=== PATIENT | male | born 1965 | race Caucasian/White ===

== ENCOUNTER 2016-04-27 10:39 | Emergency (ER) | payer MEDICARE ==
[2016-04-27 11:09] LABS: HEMOGLOBIN 13.9 gm/dl (14.0-17.5); RED BLOOD COUNT 4.6 M/UL (4.20-5.50); WHITE BLOOD COUNT 6.9 K/UL (4.5-11.0)
[2016-04-27 11:33] LABS: BUN/CREATININE RATIO 20 (0-10)
== END 2016-04-27 14:43 | disposition home or self-care (01) ==
LOC: ER1 10:39
PROVIDERS: Emergency Medicine
DX: R07.89 Other chest pain (principal); R79.1 Abnormal coagulation profile; R53.83 Other fatigue; I48.91 Unspecified atrial fibrillation; E11.9 Type 2 diabetes mellitus without complications; Z88.8 Allergy status to other drugs, medicaments and biological substances; Z79.4 Long term (current) use of insulin; Z79.01 Long term (current) use of anticoagulants; Z79.899 Other long term (current) drug therapy
CPT/HCPCS: 36415; 71010; 80053; 82550; 82553; 83874; 84484; 85025; 85610; 85730; 93005; 99285

== ENCOUNTER 2016-06-19 11:31 | Emergency (ER) | payer MEDICARE | END 2016-06-19 12:37 | disposition home or self-care (01) | LOC: ER1 11:31 | DX: S80.862A Insect bite (nonvenomous), left lower leg, initial encounter (principal); E11.9 Type 2 diabetes mellitus without complications; G89.29 Other chronic pain; I48.91 Unspecified atrial fibrillation; M54.9 Dorsalgia, unspecified; Z79.01 Long term (current) use of anticoagulants; Z79.4 Long term (current) use of insulin; Z79.899 Other long term (current) drug therapy; W57.XXXA Bitten or stung by nonvenomous insect and other nonvenomous arthropods, initial encounter | CPT/HCPCS: 36415; 86618; 99281 ==

== ENCOUNTER 2021-10-26 13:42 | Emergency (ER) | payer MEDICARE ==
[~2021-10-26 13:42] MED LIST: ASPIRIN EC81 MG PO; BACITRACIN3.5 GM TOP; COUMADIN5 MG PO; GLUCOPHAGE XR500 MG PO; IMDUR ER TAB 6060 MG PO; NEURONTIN400 MG PO; NOVOLIN R100 UNIT/1 INJ; OXYCONTIN20 MG PO; OXYMORPHONE HCL20 MG PO; PEPCID20 MG PO; TENORMIN 50 MG50 MG PO; TRESIBA FL100 UNIT/1 SQ; VITAMIN D250000 UNIT PO; XALATAN OP SOL2.5 ML OU
== END 2021-10-26 16:05 | disposition home or self-care (01) ==
LOC: ER1 13:42
DX: S80.12XA Contusion of left lower leg, initial encounter (principal); E11.9 Type 2 diabetes mellitus without complications; Z79.4 Long term (current) use of insulin; Z88.1 Allergy status to other antibiotic agents; Z79.01 Long term (current) use of anticoagulants; W22.8XXA Striking against or struck by other objects, initial encounter; Z23 Encounter for immunization
CPT/HCPCS: 73590; 90471; 90715; 99283

== ENCOUNTER → 2021-11-02 | Outpatient (CLI) | payer MEDICARE | LOC: EMI 09:59 | DX: S89.92XA Unspecified injury of left lower leg, initial encounter (principal) | CPT/HCPCS: 73718 ==